=== PATIENT | male | born 1985 | race Caucasian/White ===

== ENCOUNTER 2018-01-11 08:44 | Emergency (ER) | payer OTHER ==
[~2018-01-11] VITALS: Ht 172.7 cm; Wt 74.9 kg
[~2018-01-11 08:44] MED LIST: CLINDAMYCIN HC150 MG PO; TRAMADOL HCL50 MG PO
[2018-01-11] MEDS ORDERED: TESSALON PERLE100 MG PO (09:15)
[2018-01-11] MEDS ORDERED: LIDODERM 5% P1 PATCH TD (09:15)
[2018-01-11] MEDS ORDERED: FLONASE16 G1 BOTH NARES (09:15)
[2018-01-11 09:46] VITALS: BP 121/81
== END 2018-01-11 09:48 | disposition home or self-care (01) ==
LOC: EME 08:44
DX: R09.81 Nasal congestion (principal); R05 Cough; S39.012A Strain of muscle, fascia and tendon of lower back, initial encounter; F17.200 Nicotine dependence, unspecified, uncomplicated; Z88.0 Allergy status to penicillin; Z88.1 Allergy status to other antibiotic agents; Z88.8 Allergy status to other drugs, medicaments and biological substances
CPT/HCPCS: 99281; 99284